=== PATIENT | male | born 1995 | race Caucasian/White ===

== ENCOUNTER 2020-02-17 12:44 | Emergency (ER) | payer BC, SELFPAY ==
[2020-02-17] MEDS ORDERED: Dexamethasone 4 MG TAB ONE (13:58)
== END 2020-02-17 16:15 | disposition home or self-care (01) ==
LOC: ERS 12:44
DX: J02.9 Acute pharyngitis, unspecified (principal); E10.9 Type 1 diabetes mellitus without complications
CPT/HCPCS: 87081; 87430; 99283; J8540

== ENCOUNTER 2020-02-18 09:17 | Emergency (ER) | payer BC ==
[2020-02-18] MEDS ORDERED: AMOXicillin 250 MG CAP ONE (10:07)
[2020-02-18 17:12] LABS: SARS-CoV-2 MS2 Positive; SARS-CoV-2 N Gene Negative; SARS-CoV-2 S Gene Negative; SARS-CoV-2 orf1ab Negative
== END 2020-02-18 10:39 | disposition home or self-care (01) ==
LOC: ERS 09:17
DX: J02.9 Acute pharyngitis, unspecified (principal); I10 Essential (primary) hypertension; E10.9 Type 1 diabetes mellitus without complications
CPT/HCPCS: 87081; 87430; 87635; 87804; 99282; U0003